=== PATIENT | female | born 1995 | race Hispanic/Latino ===

== ENCOUNTER 2016-10-17 19:35 | Emergency (ER) | payer OTHER ==
[~2016-10-17] VITALS: Ht 170.2 cm; Wt 77.1 kg
[2016-10-17 20:54] LABS: MICROSCOPIC INDICATED? MAN YES (NO)
[2016-10-17 20:55] LABS: RBC, URINE TNTC /hpf (0-3); SQUAMOUS EPITHELIAL CELL URINE MOD AMOUNT /hpf (SMALL AMT)
[2016-10-17 20:56] LABS: BACTERIA, URINE MOD AMOUNT; HYALINE CAST, URINE NONE SEEN /lpf (0-1); MICROSCOPIC EXAM PERFORMED
[2016-10-17 21:16] LABS: BASO % 0.4 % (0.0-1.0); EOS # 0.2 K/mm3 (0.0-0.50); EOS % 2.1 % (0.0-3.0); LARGE UNSTAINED CELL # 0.1 K/mm3 (0.0-0.4); LARGE UNSTAINED CELL % 1.8 % (0.0-4.0); LYMPH # 2.1 K/mm3 (1.5-6.5); LYMPH % 26.9 % (24.0-44.0); MEAN CORPUSCULAR HEMOGLOBIN 30.9 pg (27.0-33.0); MEAN CORPUSCULAR HGB CONC 34.4 g/dl (32.0-36.5); MEAN CORPUSCULAR VOLUME 89.7 fl (80.0-96.0); MONO # 0.3 K/mm3 (0.0-0.8); MONO % 3.7 % (0.0-5.0); NEUTROPHILS # 5.1 K/mm3 (1.8-7.7); NEUTROPHILS % 65.1 % (36.0-66.0); PLATELET COUNT, AUTOMATED 211 k/mm3 (150-450); RED CELL DISTRIBUTION WIDTH 11.9 % (11.5-14.5); WHITE BLOOD COUNT 7.8 K/mm3 (4.0-10.0)
[2016-10-17 22:17] VITALS: BP 119/75
--- NOTE | 2016-10-18 03:10 | REPUSA ---
Clinical history: aginal bleeding. Findings: Real-time transabdominal and transvaginal ultrasound images of the pelvis were obtained. An anteverted uterus is noted, measuring 8.8 x 3.4 x 4.5 cm. The uterus demonstrates normal echotextu re and echogenicity. The endometrial stripe measures 3 mm and is within normal limits. The right ovar y measures 3.4 x 1.9 x 2.1 cm. The left ovary measures 3.8 x 2.4 x 2.2 cm. No adnexal masses are s een. Color Doppler flow is seen within both ovaries. The urinary bladder measures 4.3 x 2.4 x 5.0 cm and is unremarkable. There is no evidence of free fluid. Impression: No evidence of an intrauterine this time. Differential diagnosis includes early , missed , or less likely, ectopic . Follow-up with serial serum beta hCG levels is recommended for further evaluation.
== END 2016-10-17 22:19 | disposition home or self-care (01) ==
LOC: M ED 20:54
DX: O03.9 Complete or unspecified spontaneous abortion without complication (principal)